=== PATIENT | female | born 1995 | race Two or more races ===

== ENCOUNTER 2024-03-05 10:56 | Observation (INO) | payer MEDICAID, OTHER | END 2024-03-05 13:00 | disposition home or self-care (01) | LOC: UNDOADMOB 10:56 → LDRP 10:56 | PROVIDERS: ADMIT Obstetrics & Gynecology; ATTEND Obstetrics & Gynecology | DX: O99.282 Endocrine, nutritional and metabolic diseases complicating pregnancy, second trimester (principal); E86.0 Dehydration; O26.892 Other specified pregnancy related conditions, second trimester; R42 Dizziness and giddiness; R55 Syncope and collapse; Z3A.21 21 weeks gestation of pregnancy | CPT/HCPCS: 59025; 76815; 81002; 82948; 94760; G0378 ==